=== PATIENT | female | born 1980 ===

== ENCOUNTER 2016-11-02 07:32 | Emergency (ER) | payer BC, MEDICAID ==
--- NOTE | 2016-11-02 10:54 | UC ---
Ayanna Mathis Rebecca, scribed for Chrystal Campos MD on 11/02/16 at 0903 . Skin Complaint HPI - HPI Summary HPI Summary: Pt is a 36 y/o F who presents to [facility] c/o raised rash on the left buttock cheek. Sx began suddenly 5 days ago and has been constant since onset. When first noticed pt states, "I thought maybe in the shower it was a pimple or something." Associated pain is mild, ranked 2/10, characterized as dull. Sx aggravated by certain sitting positions, alleviated by nothing. Denies rash anywhere else and pruritis. Pt was counseled on avoiding irritating the area and using sitz baths to treat. Advised to wear loose clothing. Allergy to Sulfa Abx. LNMP 4 weeks ago. Has 2 children. - History of Current Complaint Chief Complaint: [facility] Time Seen by Provider: 11/02/16 08:56 Stated Complaint: RASH Hx Obtained From: Patient Hx Last Menstrual Period: 4 WEEKS AGO ?: Yes Onset/Duration: Sudden Onset, Lasting Days - 5 days ago, Still Present Timing: Constant Onset Severity: Mild Current Severity: Mild Pain Intensity: 2 Pain Scale Used: 0-10 Numeric Location: Discrete, Other - L buttock cheek Character: Pain - mild, Raised Aggravating: Other - Certain sitting position Alleviating: Nothing Associated Signs & Symptoms: Positive: Rash - L buttock; not pruritic or anywhere else - Allergy/Home Medications Allergies/Adverse Reactions: Allergies Allergy/AdvReac Type Severity Reaction Status Date / Time Sulfa Antibiotics Allergy Severe Difficulty Verified 11/02/16 07:42 Breathing Home Medications: Home Medications Norgestimate-Eth Estradiol(NF) [Ortho Tri-Cyclen (NF)] 1 tab PO DAILY 11/02/16 [ History Confirmed 11/02/16] Review of Systems Constitutional: Negative Skin: Rash - raised, discrete to L buttock, Other - Denies pruritis Gastrointestinal: Negative Psychological: Negative All Other Systems Reviewed And Are Negative: Yes PMH/Surg Hx/FS Hx/Imm Hx Previously Healthy: Yes - Surgical History Surgical History: None - Family History Known Family History: Positive: Hypertension, Diabetes - Social History Alcohol Use: None Substance Use Type: None Smoking Status (MU): Never Smoked Tobacco - Immunization History Most Recent Influenza Vaccination: NO Most Recent Tetanus Shot: NO Most Recent Pneumonia Vaccination: N0 Physical Exam Triage Information Reviewed: Yes Appearance: No Pain Distress, Well-Nourished, Ill-Appearing Vital Signs: Initial Vital Signs Temp 97.7 F 11/02/16 07:43 Pulse 84 11/02/16 07:43 Resp 16 11/02/16 07:43 BP 113/80 11/02/16 07:43 Pulse Ox 100 11/02/16 07:43 Vital Signs Reviewed: Yes Eyes: Positive: Conjunctiva Clear ENT: Positive: Normal ENT inspection Neck: Positive: Supple Respiratory: Positive: No respiratory distress Cardiovascular: Positive: RRR, No Murmur, Brisk Capillary Refill Abdomen Description: Positive: Nontender, No Organomegaly, Soft Musculoskeletal: Positive: Strength Intact, ROM Intact Neurological: Positive: Alert, Muscle Tone Normal Psychological Exam: Normal Skin: Positive: Other - Excoriated, abraded open area in the L gluteal crease in the location where pilonidal cysts occur Course/Dx - Course Course Of Treatment: Allergies noted. - Differential Diagnoses - Skin Complaint Differential Diagnoses: Abscess, Cellulitis, MRSA - Diagnoses Provider Diagnoses: pilonidal cyst Discharge - Discharge Plan Condition: Stable Disposition: HOME Prescriptions: Cephalexin CAP* [Keflex 500 CAP*] 500 mg PO QID #40 cap Patient Education Materials: Pilonidal Cyst (GEN) Referrals: [facility] [place] [facility] [Outside] (call to get established with a primary care provider) Juan R Corea MD [Medical Doctor] - Additional Instructions: Dr. Campos recommends that you do sitz baths and that you wear loose fitting clothing. Return to urgent care if you have new or worsening symptoms. The documentation as recorded by the Ayanna giordano Rebecca accurately reflects the service I personally performed and the decisions made by , Chrystal Campos MD.
== END 2016-11-02 09:18 | disposition home or self-care (01) ==
LOC: UCEAST 07:32
DX: L05.91 Pilonidal cyst without abscess (principal); Z88.2 Allergy status to sulfonamides
CPT/HCPCS: 99202; G0463

== ENCOUNTER 2018-12-22 08:12 | Emergency (ER) | payer BC ==
[2018-12-22 08:22] VITALS: BP 124/84
--- NOTE | 2018-12-22 09:44 | UC ---
Complaint Female HPI - HPI Summary HPI Summary: NOT SURE IF SHE HAS A TAMPON STUCK IN HER VAGINA. REMEMBERS INSERTING IT YESTERDAY BUT DOES NOT REMEMBER TAKING IT OUT. COULDN'T FIND ANYTHING HERSELF BUT WANTS TO BE CHECKED TO MAKE SURE. NO PAIN, NO FEVER. NO VAGINAL D/C. - History Of Current Complaint Chief Complaint: [facility] Stated Complaint: PERSONAL Time Seen by Provider: 12/22/18 09:43 Hx Obtained From: Patient Hx Last Menstrual Period: bcp Severity Currently: None Pain Intensity: 0 Pain Scale Used: 0-10 Numeric Character: Not Applicable Aggravating Factor(s): Nothing Alleviating Factor(s): Nothing Associated Signs And Symptoms: Negative: Fever, Back Pain, Vaginal Discharge, Nausea - Allergies/Home Medications Allergies/Adverse Reactions: Allergies Allergy/AdvReac Type Severity Reaction Status Date / Time Sulfa (Sulfonamide Allergy Difficulty Verified 12/22/18 08:23 Antibiotics) Breathing PMH/Surg Hx/FS Hx/Imm Hx Previously Healthy: Yes - Surgical History Surgical History: None - Family History Known Family History: Positive: Hypertension, Diabetes - Social History Alcohol Use: None Substance Use Type: None Smoking Status (MU): Never Smoked Tobacco - Immunization History Most Recent Influenza Vaccination: NO Most Recent Tetanus Shot: NO Most Recent Pneumonia Vaccination: N0 Review of Systems All Other Systems Reviewed And Are Negative: Yes Constitutional: Positive: Negative Respiratory: Positive: Negative Cardiovascular: Positive: Negative Gastrointestinal: Positive: Negative Genitourinary: Negative: Dysuria, Vaginal/Penile Discharge, Vaginal/Penile Pain Physical Exam Triage Information Reviewed: Yes Appearance: Well-Appearing, No Pain Distress, Well-Nourished Vital Signs: Initial Vital Signs Temp 98 F 12/22/18 08:19 Pulse 79 12/22/18 08:19 Resp 16 12/22/18 08:19 BP 124/84 12/22/18 08:19 Pulse Ox 99 12/22/18 08:19 Vital Signs Reviewed: Yes Eyes: Positive: Conjunctiva Clear ENT: Positive: Hearing grossly normal Neck: Positive: Supple Respiratory: Positive: No respiratory distress, No accessory muscle use Cardiovascular: Positive: Pulses Normal Abdomen Description: Positive: Soft Pelvic Exam: Positive: External Exam Normal, No Cerv. Motion Tender, Other - NO FB IN VAGINAL VAULT. SMALL AMOUNT BLOOD OOZING FROM CERVIX Musculoskeletal: Positive: No Edema Neurological: Positive: Alert Psychological: Positive: Age Appropriate Behavior Skin: Negative: Rashes Complaint Female Dx - Course Course Of Treatment: NO FOREIGN BODY IN VAGINAL VAULT. NO ACUTE INTERVENTION INDICATED. - Differential Dx/Diagnosis Provider Diagnosis: Normal exam Discharge - Sign-Out/Discharge Documenting (check all that apply): Patient Departure All imaging exams completed and their final reports reviewed: No Studies - Discharge Plan Condition: Stable Disposition: HOME Referrals: No Primary Care Phys,NOPCP [Primary Care Provider] - Additional Instructions: NO TAMPON IN YOUR VAGINAL VAULT. SEEK FOLLOW-UP IF YOU DEVELOP ANY PAIN, DISCHARGE OR ANY OTHER CONCERNING SYMPTOMS. CALL THE NUMBER BELOW FOR ASSISTANCE IN ESTABLISHING WITH A PCP An additional resource available to assist in finding the appropriate physician for your health care needs is the [facility] ([facility]). You may contact them by calling [phone]. - Billing Disposition and Condition Condition: STABLE Disposition: Home
== END 2018-12-22 10:02 | disposition home or self-care (01) ==
LOC: UCEAST 08:12
DX: Z03.89 Encounter for observation for other suspected diseases and conditions ruled out (principal); Z88.2 Allergy status to sulfonamides
CPT/HCPCS: 99211; G0463